=== PATIENT | male | born 1970 | race Caucasian/White ===

== ENCOUNTER → 2017-12-12 | Outpatient (CLI) | payer OTHER ==
[2017-12-12] MEDS: GADOBUTROL 7.5 MMOL/7.5 ML VIAL IV (09:52)
== END | disposition home or self-care (01) ==
LOC: KCIC MRI 08:36
DX: D36.10 Benign neoplasm of peripheral nerves and autonomic nervous system, unspecified (principal); Y93.55 Activity, bike riding
CPT/HCPCS: 72197; A9585